=== PATIENT | male | born 1955 | race Caucasian/White ===

== ENCOUNTER 2019-04-29 22:53 | Inpatient (IN) | payer OTHER, MEDICAID ==
[~2019-04-29] VITALS: Ht 185.4 cm; Wt 84.3 kg
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
[2019-04-29 22:55] VITALS: BP 151/107
[2019-04-29 23:51] LABS: ABSOLUTE NEUTROPHILS 3.3 thou/uL (1.4-8.2); BASOPHILS 0.7 % (0.0-2.0); EOSINOPHILS 1.1 % (0.0-3.0); HEMATOCRIT 38.5 % (42.0-52.0); LYMPHOCYTES 37.1 % (24.0-44.0); MCH 32.6 pg (26.0-34.0); MCHC 33.7 g/dL (28.0-37.0); MCV 96.5 fL (80.0-100.0); MONOCYTES 10.5 % (1.0-8.0); PLATELET COUNT 187 thou/uL (150-400); POLYS 50.6 % (36.0-66.0); RBC 3.99 mil/uL (4.50-6.00); RDW 14.5 % (10.5-14.5); WBC 6.6 thou/uL (4.0-11.0)
[2019-04-29 23:58] LABS: CALCIUM 8.5 mg/dL (8.5-10.1); CREATININE 1.1 mg/dL (0.7-1.3); POTASSIUM 3.5 mmol/L (3.5-5.1)
[2019-04-30 00:05] LABS: ALBUMIN 3.3 g/dL (3.4-5.0); APTT 30.8 Seconds (24.5-32.8); INR 1.1; PROTIME 11.2 Seconds (9.3-11.4); TOTAL BILIRUBIN 0.2 mg/dL (<0.1-1.0); TOTAL PROTEIN 6.7 g/dL (6.4-8.2)
[2019-04-30 00:22] LABS: URINE BILIRUBIN NEGATIVE (Negative); URINE BLOOD TRACE (Negative); URINE CLARITY CLEAR; URINE COLOR YELLOW; URINE GLUCOSE-RANDOM* NEGATIVE (Negative); URINE KETONES NEGATIVE (Negative); URINE LEUKOCYTES-REFLEX TRACE (Negative); URINE NITRITE-REFLEX NEGATIVE (Negative); URINE PROTEIN (DIPSTICK) NEGATIVE (Negative); URINE SPECIFIC GRAVITY 1.025 (1.005-1.035); URINE UROBILINOGEN 0.2 E.U./dl (0.2-1.0)
[2019-04-30 00:31] LABS: AMP/METHAMP Negative (Negative); BARBITURATES Negative (Negative); BENZODIAZEPINES Negative (Negative); COCAINE Negative (Negative); METHADONE Negative (Negative); OPIATES Negative (Negative); PCP Negative (Negative)
[2019-04-30 04:00] VITALS: BP 128/70
[2019-04-30] MEDS ORDERED: ACIDOPHILUS1 EAC4 PO (04:04)
[2019-04-30] MEDS ORDERED: PACERONE200 MG PO (04:04)
[2019-04-30] MEDS ORDERED: NON-ASPIRI160 MG/51 PO (04:04)
[2019-04-30] MEDS ORDERED: DULCOLAX5 MG RECTAL (04:08)
[2019-04-30] MEDS ORDERED: BUSPIRONE HCL10 MG PO (04:09)
[2019-04-30] MEDS ORDERED: NEURONTIN250 MG/5 M PO (04:11)
[2019-04-30] MEDS ORDERED: IPRAT-ALBUT 0.5-3 ML INH (04:13)
[2019-04-30] MEDS ORDERED: MELATIN3 MG PO (04:13)
[2019-04-30] MEDS ORDERED: MIRALAX17 GM PO (04:14)
[2019-04-30] MEDS ORDERED: REMERON15 MG PO (04:14)
[2019-04-30] MEDS ORDERED: MELATONIN5 M1 PO (04:14)
[2019-04-30] MEDS ORDERED: MULTI VITAMIN1 EACH PO (04:15)
[2019-04-30] MEDS ORDERED: CLEARLAX17 GM PO (04:26)
[2019-04-30] MEDS ORDERED: ZOLOFT100 MG PO (04:27)
[2019-04-30] MEDS ORDERED: SEROQUEL 50 MG50 MG PO (04:27)
[2019-04-30] MEDS ORDERED: ZOCOR20 MG PO (04:28)
[2019-04-30] MEDS ORDERED: VALPROIC A250 MG/51 PO (04:31)
[2019-04-30] MEDS ORDERED: XARELTO15 MG PO (04:34)
[2019-04-30 08:40] VITALS: BP 124/92
--- NOTE | 2019-04-30 15:26 | EKG ---
[place] [address] [facility] [place] [address] ELECTROCARDIOGRAM REPORT Name: MALU DONG Room #: 523B- ADM IN M.R.#: [id number] Admission: 04/30/19 Attend Phys: Nilson Arita MD Discharge: Date of : 57 Report #: [id number] THIS REPORT FOR: //name// [facility] ED Test Date: 2019-04-29 Test Time: 23:08:31 Pat Name: MALU DONG Department: Room: [facility] Gender: M Mortgage Loan Coordinator: DANIELLE : 1955 Requested By: Jah Armstrong Order Number: [id number] MD: Jaime Leonard Measurements Intervals [place] Rate: 89 P: 81 [place]: 161 QRS: 13 QRSD: 102 T: 61 QT: 400 QTc: 487 Interpretive Statements Sinus rhythm Nonspecific ST and T wave abnormality Borderline prolonged QT interval No previous ECG available for comparison Electronically Signed On 04-30-2019 15:26:03 CDT by Jaime Leonard [email or web address] <ELECTRONICALLY SIGNED> By: Jaime Leonard MD, [facility] 04/30/19 1526 07 Jaime Leonard MD, [facility] /EPI
[2019-04-30 16:36] VITALS: BP 154/95
[2019-04-30 20:17] VITALS: BP 140/103
[2019-05-01 07:00] VITALS: BP 93/52
[2019-05-01 19:17] VITALS: BP 124/92
[2019-05-02 00:05] LABS: GLYCOHEMOGLOBIN (HGB A1C) 5.3 % (4.8-5.6)
[2019-05-02 10:47] VITALS: BP 99/63
[2019-05-02 19:27] VITALS: BP 113/72
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
[2019-05-03] VITALS: BP 113/72
[2019-05-03 05:40] VITALS: BP 113/72
[2019-05-03 06:04] VITALS: BP 113/72
[2019-05-03 07:27] VITALS: BP 114/78
[2019-05-03 08:00] VITALS: BP 114/78
[2019-05-03 19:51] VITALS: BP 123/90
[2019-05-04 08:48] VITALS: BP 112/71
[2019-05-04 09:56] VITALS: BP 112/71
[2019-05-04 20:05] VITALS: BP 128/93
[2019-05-05 02:57] VITALS: BP 128/93
[2019-05-05 07:00] VITALS: BP 131/79
[2019-05-05 12:53] VITALS: BP 131/79
[2019-05-05 21:08] VITALS: BP 143/99
[2019-05-06 02:25] VITALS: BP 143/99
[2019-05-06 09:34] VITALS: BP 108/72
[2019-05-06 21:19] VITALS: BP 131/91
[2019-05-07 09:22] VITALS: BP 118/75
[2019-05-07 21:20] VITALS: BP 131/95
[2019-05-08 08:42] VITALS: BP 87/52
[2019-05-08 23:07] VITALS: BP 151/74
[2019-05-09 00:14] VITALS: BP 123/84
[2019-05-09] MEDS ORDERED: REMERON 30 MG T30 M1 PO (09:42)
[2019-05-09] MEDS ORDERED: SEROQUEL 25 MG25 M1 PO (09:43)
[2019-05-09] MEDS ORDERED: BUSPIRONE HCL5 MG PO (09:44)
[2019-05-09] MEDS ORDERED: MELATONIN3 MG PO (09:45)
[2019-05-09] MEDS ORDERED: MELATONIN5 M1 PO (09:45)
[2019-05-09 12:21] VITALS: BP 123/84
== END 2019-05-09 13:30 | DRG 884 ==
LOC: ER 22:53 → SBH 04-30 01:57 → EROBS 04-30 01:57 → SBH 04-30 01:57
PROVIDERS: Emergency Medicine; Internal Medicine; ADMIT Psychiatry & Neurology Psychiatry
DX: F01.51 Vascular dementia, unspecified severity, with behavioral disturbance (principal); G93.1 Anoxic brain damage, not elsewhere classified; F91.1 Conduct disorder, childhood-onset type; F39 Unspecified mood [affective] disorder; I10 Essential (primary) hypertension; G40.909 Epilepsy, unspecified, not intractable, without status epilepticus; E78.5 Hyperlipidemia, unspecified; J45.909 Unspecified asthma, uncomplicated; R45.850 Homicidal ideations; I95.9 Hypotension, unspecified; I25.10 Atherosclerotic heart disease of native coronary artery without angina pectoris; Z87.891 Personal history of nicotine dependence; I25.2 Old myocardial infarction; Z86.711 Personal history of pulmonary embolism; Z79.899 Other long term (current) drug therapy
CPT/HCPCS: 10880